=== PATIENT | male | born 1950 | race Caucasian/White ===

== ENCOUNTER → 2018-04-07 09:49 | Outpatient (CLI) | payer MEDICARE, BC ==
[2014-12-01 16:15] VITALS: BMI 28.0
[~2018-04-07 09:49] MED LIST: BAYER CHEWABLE81 MG PO; BETAPACE 80 MG80 MG PO; COREG 3.1253.125 MG PO; IMDUR30 MG PO; LIPITOR20 MG PO; NITROSTAT0.4 MG SL; PLAVIX75 MG PO; PROTONIX40 MG PO
== END | disposition home or self-care (01) ==
LOC: D.CT 04-05 10:00
DX: I65.23 Occlusion and stenosis of bilateral carotid arteries (principal)

== ENCOUNTER 2018-05-10 10:26 | Inpatient (IN) | payer MEDICARE, BC ==
[~2018-05-10] VITALS: Ht 188 cm; Wt 98.0 kg
--- NOTE | ~2018-05-10 | OP ---
PATIENT NAME: MARK MUNOZ MEDICAL RECORD: [id number] :46 LOCATION:[facility].CV07 ADMISSION DATE:05/13/18 SURGEON: EDUARDA BLANCHARD MD DATE OF OPERATION: 05/13/2018 SURGEON: Eduarda Blanchard MD ANESTHESIA: General endotracheal, Dr. Sanchez. OPERATION PERFORMED: Left carotid endarterectomy with patch angioplasty. PREOPERATIVE DIAGNOSIS: Critical left internal carotid artery stenosis. POSTOPERATIVE DIAGNOSIS: Critical left internal carotid artery stenosis. INDICATION FOR OPERATION: Severe left internal carotid artery stenosis. FINDINGS OF THE OPERATION: Severe left internal carotid artery stenosis. There were no EEG changes with clamping or unclamping of the carotid artery. ESTIMATED BLOOD LOSS: Less than 100 mL. DESCRIPTION OF PROCEDURE: After informed consent, adequate preoperative medication evaluation, the patient was brought to the operating room, placed in supine position. After induction of general endotracheal anesthesia and application of appropriate monitoring devices, the left neck and chest were prepped and draped in sterile field, utilizing Betadine scrub, alcohol, and Betadine solution. Betadine-impregnated drape was also used. An oblique incision was made in the skin crease. Dissection carried down the fascia. Hemostasis maintained with electrocautery. The facial vein was identified and divided. Utilizing sharp dissection, the common carotid, internal and external carotid arteries were dissected free from surrounding structures, protecting the neurological structures. The patient was given a calculated dose of heparin, after 3 minutes, clamps were applied. After 2 minutes, no EEG change. The arteriotomy was made and extended with Velazquez scissors. Artery underwent endarterectomy sharply. Artery underwent extensive debridement and irrigation. Utilizing a CorMatrix vascular patch, a running 7-0 Prolene suture, the arteriotomy was closed with patch angioplasty technique. All maneuvers to remove trapped air were performed. The clamps removed sequentially. There were no EEG changes. The patient was given a calculated dose of protamine to reverse the heparin. Hemostasis was achieved. A #7 Lorne-Buchanan drain was left in depths of wound and brought through the base of the neck. Neck was again irrigated. Instrument count and sponge count were correct times 2. Neck was closed in layers utilizing 3-0 Vicryl on the platysma, 5-0 subcuticular Monocryl on the skin. Sterile dressings were applied. The patient tolerated the procedure well and was transferred to the CV ICU in satisfactory condition. TRANSINT:[id number] Voice Confirmation ID: [id number] DOCUMENT ID: [id number] OPERATIVE REPORT [id number] MARK MUNOZ EDWARD MD CC: [id number] DICTATION DATE: 05/13/181744 CYLINDER INSPECTOR: 05/13/182235 ADM IN [address] [id number] [place] [address]
[2018-05-10] MEDS ORDERED: COREG6.25 MG PO (11:19)
[2018-05-10] MEDS ORDERED: ZYRTEC10 MG PO (11:20)
[2018-05-10] MEDS ORDERED: EPIPEN 2-P0.3 MG/0.3 IM (11:20)
[2018-05-10] MEDS ORDERED: FLUTICASONE PRO16 GM NASAL (11:21)
[2018-05-10] MEDS ORDERED: COZAAR25 MG PO (11:21)
[2018-05-10] MEDS ORDERED: NITROGLYCERIN TP (11:23)
[2018-05-10] MEDS ORDERED: PLAVIX75 MG PO (11:24)
[2018-05-10] MEDS ORDERED: MINIPRESS1 MG PO (11:25)
[2018-05-10] MEDS ORDERED: SUDOGEST30 MG (11:26)
[2018-05-10 12:16] LABS: HEMATOCRIT 41.3 % (42.0-54.0); HEMOGLOBIN 14.7 g/dL (13.5-17.5); MCH 32.2 pg (26.0-34.0); MCHC 35.6 g/dL (31.0-37.0); MCV 90.6 fL (80.0-100.0); MEAN PLATELET VOLUME 8.5 fL (7.4-10.4); RBC 4.56 10x6/uL (4.20-6.10); RDW 12.2 % (11.5-14.5); WBC 3.9 10x3/uL (4.8-10.8)
[2018-05-10 12:32] LABS: APTT 27.3 SECONDS (22.8-39.4); INR 1.12 (0.85-1.17); PROTIME 13.9 SECONDS (11.6-15.0)
[2018-05-10 12:33] LABS: ALBUMIN 4.1 g/dL (3.4-5.0); ANION GAP 13.1 mmol/L (8-16); BILIRUBIN - TOTAL 0.68 mg/dL (0.2-1.3); CALCIUM 9.3 mg/dL (8.5-10.1); CARBON DIOXIDE 29.4 mmol/L (21.0-32.0); CREATININE - SERUM 1.1 mg/dL (0.6-1.3); POTASSIUM - SERUM 4.5 mmol/L (3.5-5.1); PROTEIN - SERUM 8.4 g/dL (6.4-8.2)
[2018-05-10 12:50] LABS: APPEARANCE CLEAR (CLEAR); BILIRUBIN NEGATIVE (NEGATIVE); COLOR YELLOW (YELLOW); GLUCOSE NEGATIVE (NEGATIVE); KETONE NEGATIVE (NEGATIVE); NITRITE NEGATIVE (NEGATIVE); PROTEIN NEGATIVE (NEGATIVE); SPECIFIC GRAVITY 1.005 (1.005-1.020); UROBILINOGEN NORMAL (NORMAL)
[2018-05-13] VITALS (25 sets, daily range): BP systolic 113–143; BP diastolic 52–77; BMI 27.6; BMI 27.5
[2018-05-14] VITALS (46 sets, daily range): BP systolic 86–170; BP diastolic 44–75; Ht 188 cm; Wt 98.0 kg
--- NOTE | 2018-05-14 02:56 | NUR ---
REASSESSMENT COMP-LETED. SEE FLOWSHEET
[2018-05-14] MEDS ORDERED: ULTRAM50 MG PO (11:56)
--- NOTE | 2018-05-14 13:12 | NUR ---
1155: DR. SALAZAR WITH PATIENT. 1200: R RADIAL ART LINE DC'D. MANUAL PRESSURE HELD X 2 MIN. DRESSED WITH 4X4 AND SECURED WITH TAPE. 1210: JAMAL AUGUST'Lucia.
--- NOTE | 2018-05-14 13:50 | NUR ---
DR. BLANCHARD CALLED REQUESTING CONDITION UPDATE. UPDATE GIVEN AND NEW ORDER REC'D.
--- NOTE | 2018-05-14 21:10 | NUR ---
1899 REPORT RECIEVED, ASSUSMED CARE. SHIFT ASSESSMENT COMPLETE, PLEASE SEE FLOW SHEETS FOR DETAILS. C/O HEADACHE, PROVIDED ICE PER PT REQUEST. SOME NAUSEA NOTED, COOL CLOTH PROVIDED, CLOSELY MONITORING. 1941 GAVE ULTRAM PER ORDERS PAIN 7/10 IN HEAD. SITTING UP AT SIDE OF BED. CONTINUE TO CLOSELY MONITOR. 2099 TOLERATED PO MEDS WELL. BACK IN BED. PAIN AND NAUSEA RELIEVED. WILL CONTINUE PLAN OF CARE.
[2018-05-15] VITALS: BP 129/79
[2018-05-15 01:00] VITALS: BP 149/111
--- NOTE | 2018-05-15 01:01 | NUR ---
TREATING PAIN PER ORDERS. NO OTHER NEEDS. HEMODYNAMICALLY STABLE. WILL CONTINUE PLAN OF CARE.
[2018-05-15 03:00] VITALS: BP 124/59
--- NOTE | 2018-05-15 03:00 | NUR ---
RESTING, HEMODYNAMICALLY STABLE. BED LOW AND LOCKED, CALL LIGHT IN REACH. WILL CONTINUE PLAN OF CARE.
[2018-05-15 07:00] VITALS: BP 127/70
--- NOTE | 2018-05-15 07:30 | NUR ---
AWAKE AND ALERT. CONTINUES TO C/O "SLIGHT" HEADACHE AND NAUSEA. STATES HE WANTS TO GO HOME. DISCONNECTED FROM MONITOR AND ALLOWED TO AMBULATE IN ROOM. 0800: VOMITED APPROX 250CC GREEN EMESIS. ZOFRAN GIVEN. BACK TO BED. SEE FLOWSHEET FOR VS. 0830: HERE. CONTINUES TO WANT TO GO HOME. R SUBCLAVIAN DC'D. MANUAL PRESSURE HELD X 3 MIN AND DRESSED WITH 4X4 AND TEGADERM. 0840: UP IN ROOM GETTING DRESSED.
[2018-05-15 08:00] VITALS: BP 160/91
--- NOTE | 2018-05-15 08:49 | NUR ---
0845: DISCHARGE INSTRUCTIONS REVIEWED WITH PATIENT AND . 0847: DISCHARGED HOME. ESCORTED TO CAR.
== END 2018-05-15 08:47 | disposition home or self-care (01) | DRG 39 ==
LOC: D.SDCHOLD 05-13 07:30 → D.CVICU 05-13 15:33
PROVIDERS: ADMIT Internal Medicine Cardiovascular Disease; ATTEND Internal Medicine Cardiovascular Disease
PROC: 03UL0JZ Supplement Left Internal Carotid Artery with Synthetic Substitute, Open Approach (ICD-10-PCS; 2018-05-13)
PROC: 03CL0ZZ Extirpation of Matter from Left Internal Carotid Artery, Open Approach (ICD-10-PCS; principal; 2018-05-13 10:00)
DX: I65.23 Occlusion and stenosis of bilateral carotid arteries (principal); I10 Essential (primary) hypertension; I25.10 Atherosclerotic heart disease of native coronary artery without angina pectoris; Z95.1 Presence of aortocoronary bypass graft; G44.40 Drug-induced headache, not elsewhere classified, not intractable; T40.4X5A Adverse effect of other synthetic narcotics, initial encounter

== ENCOUNTER 2018-05-15 17:21 | Observation (INO) | payer MEDICARE, BC ==
[~2018-05-15] VITALS: Ht 188 cm; Wt 96.0 kg
[~2018-05-15 17:21] MED LIST changes: +COREG6.25 MG PO; +COZAAR25 MG PO; +EPIPEN 2-P0.3 MG/0.3 IM; +FLUTICASONE PRO16 GM NASAL; +MINIPRESS1 MG PO; +NITROGLYCERIN TP; +SUDOGEST30 MG; +ULTRAM50 MG PO; +ZYRTEC10 MG PO
[2018-05-15 18:46] LABS: BASOPHILS 0.2 % (0-2); EOSINOPHILS 1.1 % (0-7); HEMATOCRIT 38.1 % (42.0-54.0); HEMOGLOBIN 13.1 g/dL (13.5-17.5); IMMATURE GRANULOCYTES 0.2 % (0-5); LYMPHOCYTES 14.3 % (15-50); MCH 31.3 pg (26.0-34.0); MCHC 34.4 g/dL (31.0-37.0); MCV 90.9 fL (80.0-100.0); MEAN PLATELET VOLUME 9.3 fL (7.4-10.4); MONOCYTES 7.1 % (2-11); NEUTROPHILS 77.1 % (40-80); PLATELET COUNT 142 10x3/uL (130-400); RBC 4.19 10x6/uL (4.20-6.10); RDW 12.4 % (11.5-14.5); WBC 5.5 10x3/uL (4.8-10.8)
[2018-05-15 19:05] LABS: ALBUMIN 3.6 g/dL (3.4-5.0); ALKALINE PHOSPHATASE 81 U/L (46-116); ALT (SGPT) 16 U/L (10-68); BILIRUBIN - TOTAL 0.92 mg/dL (0.2-1.3); CALC OSMOLALITY 275 mosm/kg (275-300); CALCIUM 8.6 mg/dL (8.5-10.1); CARBON DIOXIDE 29.9 mmol/L (21.0-32.0); CHLORIDE - SERUM 99 mmol/L (98-107); CREATININE - SERUM 0.8 mg/dL (0.6-1.3); GLUCOSE 125 mg/dL (74-106); POTASSIUM - SERUM 3.9 mmol/L (3.5-5.1); PROTEIN - SERUM 7.7 g/dL (6.4-8.2); SODIUM 138 mmol/L (136-145); UREA NITROGEN 10 mg/dL (7-18); eGFR NON AFRICAN AMERICAN > 90 mL/min (90-120)
--- NOTE | 2018-05-15 21:51 | NUR ---
PT LAYING IN BED. RESPIRATIONS ARE EVEN AND UNLABORED. NO DISTRESS NOTED AT THIS TIME. COLOR WNL FOR RACE. FAMILY MEMBER AT BEDSIDE. IV PATENT AND INFUSING WITHOUT SIGNS OF INFILTRATION NOTED.
[2018-05-15 23:05] VITALS: BP 111/75
--- NOTE | 2018-05-15 23:06 | NUR ---
PT LAYING IN BED RESPIRATIONS ARE EVEN AND UNLABORED. NO DISTRESS NOTED. VSS. COLOR WNL FOR RACE. IV PATENT WITH NO SIGNS OF INFILTRATION NOTED. WILL CONTINUE TO MONITOR.
[2018-05-16 00:01] VITALS: BMI 27.0
--- NOTE | 2018-05-16 00:10 | NUR ---
WHEN REPORT RECIEVED FROM ER NURSE,WAS INFORMED THAT PT WAS BEING ADMITTED TO DR SU. EXPRESSED TO HER CONCERN THAT THIS PATIENT WAS UNDER THE CARE OF DR BLANCHARD OF YESTERDAY AND IS ONLY ONE DAY POST OP CAROTID ENDARECTOMY WITH N/V THAT HAS BEEN ONGOING SINCE D/C YESTERDAY. ER NURSE SAYS THERE IS NO INDICATION THAT DR BLANCHARD IS AWARE HIS PATIENT IS EVEN IN THE ER. SPOKE WITH PAST DUE ACCOUNTS CLERK, BABAK, AND ALSO BROUGHT UP CONCERNS THAT DR BENAVIDES POST OP PATIENT WAS BEING ADMITTED WITHOUT HIS KNOWLEDGE UNDER DR SU. PAST DUE ACCOUNTS CLERK SPOKE WITH RAKESH IN ER AND SHE ALSO EXPRESSED SOME CONCERN SINCE PATIENT IS ONLY BARELY POST OP. RECIEVED RETURN INFORMATION FROM PAST DUE ACCOUNTS CLERK THAT ER NURSE RAKESH, SPOKE WITH DR SUNG, AND HE SAID HE DID NOT FEEL PT NEEDED TO BE UNDER THE CARE OF DR BLANCHARD AT THIS TIME AND DR SU WAS THE DOCTOR THAT PATIENT WAS ADMITTED TO. PT WAS ADMITTED TO ROOM 2116. ALERT/ORIENTED. CURRENTLY WITH NO NAUSEA, RECIEVED MULTIPLE THINGS FOR NAUSEA WHILE IN ER. ASSESSED DRESSING TO LEFT SIDE OF NECK. REMOVED OLD DRESSING AND APPLIED NEW DRESSING. SITE IS HEALING NICELY. [address] IV TO LEFT A/C WITH NS @ 100ML/HR CURRENTLY INFUSING. NONLABORED RESPIRATIONS. ADMISSION ASSESSMENT AND HISTORY COMPLETED. REVIEWED HOME MEDS AND UPDATED. MONITOR AND INITIATE PLAN OF CARE.
[2018-05-16 00:23] VITALS: BP 140/80
[2018-05-16 05:30] VITALS: BP 156/84
[2018-05-16 06:34] LABS: BASOPHILS 0.6 % (0-2); EOSINOPHILS 2.4 % (0-7); HEMATOCRIT 34.5 % (42.0-54.0); HEMOGLOBIN 11.8 g/dL (13.5-17.5); LYMPHOCYTES 30.5 % (15-50); MCH 31.5 pg (26.0-34.0); MCHC 34.2 g/dL (31.0-37.0); MEAN PLATELET VOLUME 9.6 fL (7.4-10.4); NEUTROPHILS 55.5 % (40-80); PLATELET COUNT 143 10x3/uL (130-400); RBC 3.75 10x6/uL (4.20-6.10); RDW 12.6 % (11.5-14.5)
[2018-05-16 07:14] LABS: CALC OSMOLALITY 281 mosm/kg (275-300); CALCIUM 8.4 mg/dL (8.5-10.1); CARBON DIOXIDE 29.6 mmol/L (21.0-32.0); CHLORIDE - SERUM 104 mmol/L (98-107); CREATININE - SERUM 0.9 mg/dL (0.6-1.3); GLUCOSE 86 mg/dL (74-106); MAGNESIUM - SERUM 1.9 mg/dL (1.8-2.4); PHOSPHOROUS 2.6 mg/dL (2.5-4.9); POTASSIUM - SERUM 3.4 mmol/L (3.5-5.1); SODIUM 143 mmol/L (136-145); UREA NITROGEN 8 mg/dL (7-18); eGFR NON AFRICAN AMERICAN 89 mL/min (90-120)
--- NOTE | 2018-05-16 07:30 | NUR ---
RECEIVED PT IN BED AAOX4 RESP UNLABORED SKIN W/D COLOR WNL LT NECK INCISION NOTED FROM PREVIOS SURGERY INCISION LINE NOTED WITH EDGES APPROXIMATED HEALING WELL NO ODOR NO DRAINAGE OR EXCESSIVE WARMTH
[2018-05-16 08:03] VITALS: BP 143/79
--- NOTE | 2018-05-16 08:12 | NUR ---
NOTIFIED AMOS WITH DR BLANCHARD PT WAS ADMITTED TO THIS FLOOR NO NEW ORDERS RECEIVED
[2018-05-16 12:01] VITALS: BP 150/82
[2018-05-16 12:17] VITALS: Ht 188 cm; Wt 96.0 kg
[2018-05-16 15:40] VITALS: BP 123/67
--- NOTE | 2018-05-16 15:56 | MORECARE ---
CASE MANAGEMENT DISCHARGE SUMMARY PATIENT: MARK MUNOZ UNIT: [id number] ADM DATE: 05/15/18 AGE: 67 : 48 SEX: M ROOM/BED: D.[facility]6 AUTHOR: RUCHI PRUETT PHYSICIAN: REFERRING PHYSICIAN: RUBÉN SU MD DATE OF SERVICE: 05/16/18 Discharge Plan Patient Name: MARK MUNOZ Facility: [facility]:[place] : 1950 Planned Disposition: Anticipated Discharge Date: Discharge Date: Expected LOS: Initial Reviewer: [email or web address] Initial Review Date: 05/15/2018 Generated: 05/16/18 4:56 pm Coverage Notice Reviewer: [email or web address] hCar García Notice Issued Date-Time: 05/16/2018 15:20 Notice Type: Medicare Outpatient Observation Notice Notice Delivered To: Patient Relationship to Patient: Self Retail Grocer Name: Delivery Method: HAND - Hand Delivered Viola Days: Prior Verbal Notification: Recipient Understood Notice: Yes Recipient Signature: Yes Med Rec Note Co-signed by Attending: Coverage Notice Comment: Patient Name: MARK MUNOZ Page [phone] at 1556 All edits/amendments must be made on the electronic document DICTATION DATE: 05/16/18 1556 CERAMIC COATER: TAVON 05/16/18 1556 RPT#: [id number] DC DATE: STATUS: ADM IN [facility] [address] [place] [address] END OF REPORT
--- NOTE | 2018-05-16 19:12 | NUR ---
RECIEVED UP IN CHAIR AT BEDSIDE. ALERT AND ORIENTED X4. UP AD BENY. IV TO LEFT AC SL.. DENIES ANY NEEDS AT THIS TIME.
[2018-05-16 21:26] VITALS: BP 114/678
[2018-05-17 00:29] VITALS: BP 138/60
[2018-05-17 06:22] VITALS: BP 132/73
[2018-05-17 06:30] LABS: ALBUMIN 3.3 g/dL (3.4-5.0); ALKALINE PHOSPHATASE 75 U/L (46-116); CALCIUM 8.9 mg/dL (8.5-10.1); CHLORIDE - SERUM 104 mmol/L (98-107); GLUCOSE 101 mg/dL (74-106); POTASSIUM - SERUM 3.8 mmol/L (3.5-5.1); PROTEIN - SERUM 7.4 g/dL (6.4-8.2); SODIUM 142 mmol/L (136-145); eGFR NON AFRICAN AMERICAN 79 mL/min (90-120)
[2018-05-17 06:33] LABS: ALT (SGPT) 22 U/L (10-68); CALC OSMOLALITY 281 mosm/kg (275-300); UREA NITROGEN 11 mg/dL (7-18)
[2018-05-17 07:05] LABS: BASOPHILS 0.5 % (0-2); EOSINOPHILS 2.6 % (0-7); HEMATOCRIT 38.2 % (42.0-54.0); HEMOGLOBIN 13.4 g/dL (13.5-17.5); LYMPHOCYTES 28.1 % (15-50); MCH 32.1 pg (26.0-34.0); MCHC 35.1 g/dL (31.0-37.0); MCV 91.4 fL (80.0-100.0); MEAN PLATELET VOLUME 9.7 fL (7.4-10.4); MONOCYTES 8.4 % (2-11); NEUTROPHILS 60.4 % (40-80); PLATELET COUNT 160 10x3/uL (130-400); RBC 4.18 10x6/uL (4.20-6.10); RDW 12.5 % (11.5-14.5); WBC 4.3 10x3/uL (4.8-10.8)
--- NOTE | 2018-05-17 09:12 | NUR ---
ASSESSMENT COMPLETE. PATIENT DENIES NEEDS. NO DISTRESS NOTED. PATIENT UP AD BENY.
[2018-05-17 09:52] VITALS: BP 107/61
--- NOTE | 2018-05-17 13:57 | NUR ---
PATIENT AND SPOUSE WAS GIVEN DISCHARGE INSTRUCTIONS. IV WAS REMOVED. TIP WAS INTACT. PATIENT ESCORTED TO PRIVATE CAR IN WHEELCHAIR VIA STAFF.
--- NOTE | 2018-05-18 07:54 | MORECARE ---
CASE MANAGEMENT DISCHARGE SUMMARY PATIENT: MARK MUNOZ UNIT: [id number] ADM DATE: 05/15/18 AGE: 67 : 48 SEX: M ROOM/BED: D.[facility]6 AUTHOR: RUCHI PRUETT PHYSICIAN: REFERRING PHYSICIAN: RUBÉN SU MD DATE OF SERVICE: 05/18/18 Discharge Plan Patient Name: MARK MUNOZ Facility: [facility]:[place] : 1950 Planned Disposition: Home Anticipated Discharge Date: 05/17/18 Discharge Date: 05/17/2018 Expected LOS: 2 Initial Reviewer: [email or web address] Initial Review Date: 05/15/2018 Generated: 05/18/18 8:54 am Coverage Notice Reviewer: [email or web address] Char García Notice Issued Date-Time: 05/16/2018 15:20 Notice Type: Medicare Outpatient Observation Notice Notice Delivered To: Patient Relationship to Patient: Self Linoleum Layer Helper Name: Delivery Method: HAND - Hand Delivered Viola Days: Prior Verbal Notification: Recipient Understood Notice: Yes Recipient Signature: Yes Med Rec Note Co-signed by Attending: Coverage Notice Comment: Last DP export: 05/16/18 2:56 pm Patient Name: MARK MUNOZ Page [phone] at 0754 All edits/amendments must be made on the electronic document DICTATION DATE: 05/18/18 0754 TRAVELING FREIGHT AGENT: TAVON 05/18/18 0754 RPT#: [id number] DC DATE:05/17/18 STATUS: DIS IN [facility] [address] [place] [address] END OF REPORT
== END 2018-05-17 13:58 | disposition home or self-care (01) ==
LOC: D.ER 17:21 → D.M2 22:26 → OBSVTIME 22:26 → D.M2 05-17 13:58
PROVIDERS: Emergency Medicine; Family Medicine; ADMIT Internal Medicine Nephrology; ATTEND Internal Medicine Nephrology
DX: R11.2 Nausea with vomiting, unspecified (principal); I65.22 Occlusion and stenosis of left carotid artery; I25.10 Atherosclerotic heart disease of native coronary artery without angina pectoris; I10 Essential (primary) hypertension; Z86.73 Personal history of transient ischemic attack (TIA), and cerebral infarction without residual deficits; K21.9 Gastro-esophageal reflux disease without esophagitis; R51 Headache

== ENCOUNTER → 2018-07-28 09:10 | Outpatient (CLI) | payer MEDICARE, BC ==
[2018-05-16 12:17] VITALS: BMI 27.3
== END | disposition home or self-care (01) ==
LOC: D.RAD 09:10
PROVIDERS: ATTEND Internal Medicine Gastroenterology
DX: R13.10 Dysphagia, unspecified (principal); R12 Heartburn

== ENCOUNTER → 2018-12-02 12:26 | Outpatient (CLI) | payer MEDICARE, BC ==
[2018-05-16 12:17] VITALS: BMI 27.3
== END | disposition home or self-care (01) ==
LOC: D.US 12:26
PROVIDERS: ATTEND Internal Medicine Cardiovascular Disease
DX: I65.23 Occlusion and stenosis of bilateral carotid arteries (principal)

== ENCOUNTER → 2019-11-21 11:55 | Outpatient (CLI) | payer MEDICARE, BC ==
[2018-05-16 12:17] VITALS: BMI 27.3
== END | disposition home or self-care (01) ==
LOC: D.US 11:55
PROVIDERS: ATTEND Internal Medicine Cardiovascular Disease
DX: I65.21 Occlusion and stenosis of right carotid artery (principal)